=== PATIENT | male | born 2000 | race Caucasian/White ===

== ENCOUNTER 2025-01-30 08:24 | Emergency (ER) | payer SELFPAY ==
[2025-01-30 09:17] VITALS: BP 151/91; PULSE 61; TEMP 36.7; O2SAT 100
--- NOTE | 2025-01-30 09:23 | W.ED.EXTPRO ---
HPI - Extremity Problem General: Chief complaint: Extremity Injury, Upper Stated complaint: right hand pain pos infection Time Seen by Provider: 01/30/25 09:22 Source: patient and family Mode of arrival: ambulatory Limitations: no limitations History of Present Illness: Patient is a 24-year-old male who presents to ED today for evaluation of a right hand infection. Patient states about 2 weeks ago he noticed a small blister/callus to his palmar right hand. 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 He states about a week later he began noticing redness and swelling and was thus seen at a walk-in clinic and placed on oral antibiotics. He has been on these for about 3 days and continues to worsen. He has worsening redness, warmth, pain and swelling to the hand. No fevers or systemic symptoms. MD Complaint: extremity pain and extremity swelling Onset (ago): day(s) Location: right and upper extremity (hand) Radiation: none Associated symptoms: Reports no associated symptoms; Deny chest pain or fever(s) Related Data Home Medications ?Medication ?Instructions ?Recorded ?Confirmed acetaminophen 500 mg tablet 100 mg PO Q6H PRN Fever Or Pain 01/30/25 01/30/25 (Tylenol Extra Strength) doxycycline hyclate 100 mg capsule 100 mg PO BID 01/30/25 01/30/25 ibuprofen 200 mg tablet (Advil) 800 mg PO Q6H PRN Fever Or Pain 01/30/25 01/30/25 Previous Rx's ?Medication ?Instructions ?Recorded hydrocodone 5 mg-acetaminophen 325 1 tab PO Q6H PRN pain #14 tabs 01/30/25 mg tablet ondansetron 4 mg disintegrating 4 mg PO Q8H PRN nausea and 01/30/25 tablet vomiting #14 tabs sulfamethoxazole 800 1 tab PO BID 7 days #14 tabs 01/30/25 mg-trimethoprim 160 mg tablet (Bactrim DS) Allergies Allergy/AdvReac Type Severity Reaction Status Date / Time No Known Allergies Allergy Verified 01/30/25 09:21 Review of Systems Const: Denies: fever(s), chills, body aches, fatigue or malaise Card: Denies: chest pain Resp: Denies: dyspnea GI: Denies: nausea or vomiting Musc: Reports: extremity pain (R hand) and extremity swelling (R hand) Neuro: Denies: numbness in extremities, weakness in extremities or sensory changes PFS ED PFSH: Medical History No pertinent past medical history Social History Smoking and tobacco/nicotine status: never used tobacco/nicotine Second hand smoke exposure: No Alcohol intake: never Substance/Drug Use: never Adopted: No Caregiver/support person: No Lives independently: Yes Household members: spouse Housing: House Marital status: Highest education level completed: High School Graduate service: No Current occupational status: employed Physical Exam Narrative: EXAM NARRATIVE: Const: COMMON NORMALS: no acute distress, average body habitus, patient oriented x3, no limitations, healthy appearing, alert and well nourished Resp: COMMON NORMALS: normal respiratory effort and clear to auscultation bilaterally AUSCULTATION: clear to auscultation bilaterally Cardio: COMMON NORMALS: regular rate and regular rhythm RATE: regular rate RHYTHM: regular rhythm Extremity: COMMON NORMALS: capillary refill normal GENERAL: Yes normal exam except as noted RIGHT UPPER EXTREMITY: Yes hand & digits (see attached image) Right hand and digits: Yes neurovascular exam (normal) OTHER: pt has significant edema/cellulitis and concern for abscess to his R hand mainly involving webbing space of 3rd and 4th digits; NV intact; no active drainage/odor noted; streaking onto the dorsal hand but nothing more proximal; no epitrochlear lymphadenopathy Neuro: COMMON NORMALS: patient oriented x3, moves all extremities, no focal motor deficits and no sensory deficits noted SENSORIUM/ORIENTATION: Yes alert Skin: NARRATIVE SKIN EXAM: see above Procedures Abscess I/D Site: hand Side (if applicable): right Technique: incised with #11 blade Amount of fluid expressed (mL): 5.0 Packing used?: none Course Consultations: Consultation #1: Dr. Anne-recommending lancing here if amendable-place on Bactrim-call office early tomorrow morning for appointment and she will see Friday for procedure in office; agreed with IV abx given here; she reviewed CT scan Vital Signs: Vital signs: Vital Signs Temperature 98.0 F 01/30/25 09:17 Pulse Rate 61 01/30/25 09:17 Respiratory Rate 16 01/30/25 09:57 Blood Pressure 151/91 01/30/25 09:17 Pulse Oximetry 100 01/30/25 09:57 Oxygen Delivery Me thod Room Air 01/30/25 09:17 MDM - Extremity (Nontraumatic) Medical Decision Making Patient here for a right hand abscess. This was opened up here with a large amount of purulent material expressed. Cultures were obtained. He was given IV vancomycin. His vital signs are stable. Blood work does show a white count of 17,000. His ESR/CRP are normal. CT hand confirming abscess. Plan will be for follow-up with [facility] hand surgeon Dr. Anne early on Friday. Return to ED precautions discussed. Medical Records I reviewed the patient's medical records. Lab Data I reviewed the patient's lab results. 01/30/25 09:36 01/30/25 09:[address] 01/30/25 09:28 IMPRESSION: 1. Cellulitis. There does appear to be a more localized fluid collection/abscess between the 4th and 5th digits. Laboratory Results WBC 17.00 10^3/uL (3.29-11.43) H 01/30/25 09:36 RBC 4.92 10^6/uL (3.85-5.65) 01/30/25 09:36 Hgb 14.70 g/dL (11.27-16.99) 01/30/25 09:36 Hct 42.9 % (37-53) 01/30/25 09:36 MCV 87.2 fl (82-101) 01/30/25 09:36 MCH 29.9 pg (27-33) 01/30/25 09:36 MCHC 34.3 g/dL (30-55) 01/30/25 09:36 RDW 12.9 % (12.1-15.1) 01/30/25 09:36 Plt Count 262 10^3/cmm (157-399) 01/30/25 09:36 MPV 8.6 fL (7.4-10.4) 01/30/25 09:36 Neut % (Auto) 80.5 % 01/30/25 09:36 Lymph % (Auto) 12.9 % 01/30/25 09:36 [place]pton % (Auto) 5.9 % 01/30/25 09:36 Eos % (Auto) 0.1 % 01/30/25 09:36 Baso % (Auto) 0.2 % 01/30/25 09:36 Neut # (Auto) 13.69 10^3/uL (1.8-7.7) H 01/30/25 09:36 Lymph # (Auto) 2.2 10^3/uL (0.8-4.8) 01/30/25 09:36 [place]pton # (Auto) 1.0 10^3/uL (0.2-0.9) H 01/30/25 09:36 Eos # (Auto) 0.0 10^3/uL (0.0-0.8) 01/30/25 09:36 Baso # (Auto) 0.0 10^3/uL (0.0-0.1) 01/30/25 09:36 Nucleated RBC % (auto) 0 % 01/30/25 09:36 Nucleated RBCs # 0.0 /100WBC 01/30/25 09:36 ESR 4 mm/hr (0-10) 01/30/25 09:36 Sodium 140 mmol/L (136-145) 01/30/25 09:36 Potassium 4.1 mmol/L (3.5-5.1) 01/30/25 09:36 Chloride 103 mmol/L (98-107) 01/30/25 09:36 Carbon Dioxide 25 mmol/L (22-29) 01/30/25 09:36 Anion Gap 16.1 (5-19) 01/30/25 09:36 BUN 14 mg/dL (6-20) 01/30/25 09:36 Creatinine 0.8 mg/dL (0.7-1.2) 01/30/25 09:36 GFR Calculation 118.8 mL/min (90-130) 01/30/25 09:36 Glucose 115 mg/dL (65-115) 01/30/25 09:36 Calculated Osmolality 291 mOsm/kg (285-295) 01/30/25 09:36 Lactic Acid 1.6 mmol/L (0.5-2.2) 01/30/25 09:36 Calcium 9.6 mg/dL (8.5-10.5) 01/30/25 09:36 Total Bilirubin 0.5 mg/dL (0.15-1.2) 01/30/25 09:36 AST 17 U/L (0-40) 01/30/25 09:36 ALT 22 U/L (0-41) 01/30/25 09:36 Alkaline Phosphatase 84 U/L (40-130) 01/30/25 09:36 C-Reactive Protein 3.8 mg/L (0.0-4.9) 01/30/25 09:36 Total Protein 7.2 g/dL (6.6-8.7) 01/30/25 09:36 Albumin 4.4 g/dL (3.5-5.2) 01/30/25 09:36 Globulin 2.8 g/dL (1.3-4.6) 01/30/25 09:36 All radiology interpretation(s) finalized by discharge Discharge Plan Discharge Patient Disposition: Home Clinical Impression: Abscess of hand, right Condition: Stable Prescriptions: New hydrocodone-acetaminophen 5-325 mg tablet 1 tab PO Q6H PRN (Reason: pain) Qty: 14 0RF sulfamethoxazole-trimethoprim [Bactrim DS] 800-160 mg tablet 1 tab PO BID 7 Days Qty: 14 0RF ondansetron 4 mg tablet,disintegrating 4 mg PO Q8H PRN (Reason: nausea and vomiting) Qty: 14 0RF No Action doxycycline hyclate 100 mg capsule 100 mg PO BID acetaminophen [Tylenol Extra Strength] 500 mg Tablet 100 mg PO Q6H PRN (Reason: Fever Or Pain) ibuprofen [Advil] 200 mg Tablet 800 mg PO Q6H PRN (Reason: Fever Or Pain) Discharge Orders: Discharge ED (Routine); Ordered 01/30/25 Ordered By: Diane Oneil Referrals: José Miguel Mckinnon MD [Primary Care Provider, Family Practice] Patient Instructions: Opioid Safety, Pain Management, Patient Portal & Miguel A Instructions Activity Restrictions/Additional Instructions: As we discussed, please contact Dr. Anne's office early tomorrow morning so they can schedule you an appointment for Friday to have the abscess drained in her office. Please fill your antibiotics and start them immediately. You may continue to do warm soapy water soaks to help abscess drain. You may return to the emergency department for worsening or uncontrollable pain, fevers, streaking up your arm, or any other concerns you may have. [facility]-DR. ANNE-HAND SURGERY [facility] [facility], [address],?[place],?[place]?[address] phone:?[phone] Print Language: Polish Coding Level of Care Code ED Field Administrative Assistant for Tg Reeves
--- NOTE | 2025-01-30 09:28 | CTR_ITS ---
PROCEDURE INFORMATION: Exam: CT Right Upper Extremity With Contrast, Hand Exam date and time: 01/30/2025 9:40 AM Age: 24 years old Clinical indication: Mass or lump and swelling; Hand; Right; Fingers; [id number] and 4th; Additional info: R hand infection/abscess TECHNIQUE: Imaging protocol: Computed tomography of the right upper extremity with contrast. Exam focused on the hand. Radiation optimization: All CT scans at this facility use at least one of these dose optimization techniques: automated exposure control; mA and/or kV adjustment per patient size (includes targeted exams where dose is matched to clinical indication); or iterative reconstruction. Contrast material: OMNI 350; Contrast volume: 100 ml; Contrast route: INTRAVENOUS (IV); COMPARISON: No relevant prior studies available. RADIATION DOSE METRICS: Total DLP (mGy-cm): 282.98 FINDINGS: Bones/joints: No acute bony abnormalities are appreciated. No fracture is identified. No periostitis or bone destruction is noted. Joint spaces are relatively well preserved. Soft tissues: There is localized fluid within the webspace between the 3rd and 4th digits measuring 3.6 cm AP dimension by 2.9 cm transverse dimension by 3.6 cm craniocaudad dimension. Fluid tracts into the soft tissues of the radial aspect of the 4th digit in the ulnar aspect of the 3rd digit. Findings most compatible with an abscess. This primarily involves the palmar soft tissues. Otherwise, there is diffuse edema involving the subcutaneous tissues likely related to cellulitis. No intrinsic abnormalities are noted with regards to the muscles or tendons. CT/CT hand [place] w con [id number] IMPRESSION: 1. Cellulitis. There does appear to be a more localized fluid collection/abscess between the 4th and 5th digits.
[2025-01-30 09:30] VITALS: BP 144/88; PULSE 65; O2SAT 100
[2025-01-30 09:42] LABS: Hematocrit 42.9 % (37-53); Hemoglobin 14.70 g/dL (11.27-16.99); Mean Corpuscular HGB Conc 34.3 g/dL (30-55); Mean Corpuscular Hemoglobin 29.9 pg (27-33); Mean Corpuscular Volume 87.2 fl (82-101); Nucleated Red Blood Cells % 0 %; Platelet Count 262 10^3/cmm (157-399); Red Blood Count 4.92 10^6/uL (3.85-5.65); White Blood Count 17.00 10^3/uL (3.29-11.43)
[2025-01-30] MEDS: iohexol 350 mg/mL 500 mL Btl (per mL) IV (09:48)
[2025-01-30 09:57] VITALS: RESP 16; O2SAT 100
[2025-01-30] MEDS: tetanus-dipt-pertussis 0.5 mL SDV IM (09:57)
[2025-01-30] MEDS: morphine 4 mg/mL SDV 1 mL IVP (09:57)
[2025-01-30] MEDS: ondansetron 2 mg/ML SDV 2 mL 4 MG IVP (09:57)
[2025-01-30 10:01] VITALS: BP 130/60; PULSE 57; O2SAT 100
[2025-01-30 10:06] LABS: Lactic Sepsis W/Reflex 1.6 mmol/L (0.5-2.2)
[2025-01-30 10:07] LABS: Alanine Aminotransferase 22 U/L (0-41); Albumin Level 4.4 g/dL (3.5-5.2); Alkaline Phosphatase 84 U/L (40-130); Anion Gap 16.1 (5-19); Aspartate Amino Transferase 17 U/L (0-40); Blood Urea Nitrogen 14 mg/dL (6-20); Calcium 9.6 mg/dL (8.5-10.5); Carbon Dioxide 25 mmol/L (22-29); Chloride 103 mmol/L (98-107); Creatinine Clr Calc Pharmacy 163.1919; Globulin 2.8 g/dL (1.3-4.6); Glucose 115 mg/dL (65-115); Osmolality Calculated 291 mOsm/kg (285-295); Potassium 4.1 mmol/L (3.5-5.1); Sodium 140 mmol/L (136-145); Total Protein 7.2 g/dL (6.6-8.7)
[2025-01-30 10:30] VITALS: BP 141/81; PULSE 47; O2SAT 99
[2025-01-30] MEDS: HYDROmorphone 0.5 MG/0.5 ML INJ IVP (11:14)
[2025-01-30 11:41] VITALS: BP 156/94; PULSE 57; O2SAT 98
--- NOTE | 2025-01-31 09:24 | DCPLANNER ---
Addendum entered by Maribel Mahoney 01/31/25 11:53: called at 1150 and got an answer! They have him in their chart now and the referral team will be calling shortly to schedule. Original Note: Patient called and stated that when calling [facility] for f/u appt they were told that the office didn't know about any consults and would need a referral. I called and spoke to Aj at the transfer center to find out what was needed and where to send it. He didn't have the info handy but called back and said that he hasn't been able to contact the office. I tried calling with no answer, left a message. Looked up office # and fax. Faxed chart to ortho office that Dr. Peterson works at for f/u
== END 2025-01-30 11:42 | disposition home or self-care (01) ==
PROVIDERS: Emergency Provider Physician Assistant; PCP Family Medicine
DX: L02.511 Cutaneous abscess of right hand (principal)
CPT/HCPCS: 10060; 36415; 73201; 80053; 83605; 85025; 85651; 86140; 87040; 87070; 87075; 87077; 87186; 87205; 90471; 90715; 96374; 96375; 99285; J1171; J2270; J2405; J3373